=== PATIENT | male | born 1975 | race Caucasian/White ===

== ENCOUNTER 2024-08-21 14:49 | Inpatient (IN) | payer OTHER ==
[2024-08-21 15:25] VITALS: BMI 26.6
[2024-08-21] MEDS ORDERED: BENZONATATE 200 MG CAPSULE PO PRN (15:58)
[2024-08-21] MEDS ORDERED: guaiFENesin 600 MG TABLET.ER (FP) PO PRN (15:58)
[2024-08-21] MEDS ORDERED: NICOTINE POLACRILEX 4 MG GUM BUC PRN (15:58)
[2024-08-21] MEDS ORDERED: ACETAMINOPHEN 325 MG TABLET (FP) PO PRN (15:58)
[2024-08-21] MEDS ORDERED: ONDANSETRON *ODT* 4 MG TABLET SL PRN (15:58)
[2024-08-21] MEDS ORDERED: NALOXONE (NARCAN) HCL 4 MG/0.1 ML SPRAY NS PRN (15:58)
[2024-08-21] MEDS ORDERED: IBUPROFEN 400 MG TABLET (FP) PO PRN (15:58)
[2024-08-21] MEDS ORDERED: BENZOCAINE/MENTHOL (CHLORASEPTIC ) LOZENGE MM PRN (15:58)
[2024-08-21] MEDS ORDERED: MAGNESIUM HYDROX 2400MG/30ML ORAL SUSPENSION 30 ML CUP PO PRN (15:58)
[2024-08-21] MEDS ORDERED: POLYETHYLENE GLYCOL (HEALTHYLAX) 3350 17 GM PACKET PO PRN (15:58)
[2024-08-21] MEDS ORDERED: MAG HYDROX/AL HYDROX/SIMETH 30 ML UNIT-DOSE CUP PO PRN (15:58)
[2024-08-21] MEDS ORDERED: LOPERAMIDE HCL 2 MG CAPSULE PO PRN (15:58)
[2024-08-21] MEDS ORDERED: BISMUTH SUBSALICYLATE 524 MG/30 ML PO PRN (15:58)
[2024-08-21] MEDS ORDERED: DICYCLOMINE HCL 10 MG CAPSULE PO PRN (15:58)
[2024-08-21] MEDS ORDERED: hydrOXYzine PAMOATE 25 MG CAPSULE (FP) PO PRN (15:58)
[2024-08-21] MEDS: PRENATAL VITAMINS W/ FOLIC ACID TABLET (FP) PO SCH (18:26)
[2024-08-21] MEDS: IBUPROFEN 600 MG TABLET (FP) PO PRN (19:24)
[2024-08-21] MEDS: MELATONIN 5 MG TABLETS PO SCH (22:23)
[2024-08-21] MEDS: METHOCARBAMOL 500 MG TABLET PO PRN (22:23)
[2024-08-21] MEDS: THIAMINE 100 MG TABLET PO SCH (22:23)
[2024-08-22 09:47] LABS: CHLORIDE 107 mmol/L (98-107); POTASSIUM 3.9 mmol/L (3.5-5.1); SODIUM 141 mmol/L (136-145)
[2024-08-22 10:05] LABS: SGPT/ALT 21 U/L (13-61)
[2024-08-22 10:06] LABS: BILIRUBIN,TOTAL 0.4 mg/dL (0.2-1)
[2024-08-22 10:07] LABS: ALBUMIN 3.3 g/dl (3.4-5.0); ANION GAP 7 mmol/L (4-13); BLOOD UREA NITROGEN 18.3 mg/dL (7-18); CO2 27 mmol/L (21-32); TOT PROT 5.9 g/dl (6.4-8.2)
[2024-08-22 10:08] LABS: ALK PHOS 70 U/L (45-117)
[2024-08-22 10:10] LABS: CREATININE 0.8 mg/dL (0.55-1.3); GLUCOSE,RANDOM 101 mg/dL (74-106); SGOT/AST 18 U/L (15-37)
[2024-08-22 10:17] LABS: MCH 30.6 pg (25.7-33.7); MCHC 34.1 g/dl (32.0-35.9); MEAN CELL VOLUME 89.9 fl (80-96); MEAN PLT VOLUME 7.8 fl (7.5-11.1); PLATELET COUNT 191 10^3/uL (134-434); RBC 4.56 M/mm3 (4.00-5.60); RDW 13.3 % (11.9-15.9); WHITE BLOOD COUNT 6.1 K/mm3 (4.0-10.0)
[2024-08-22] MEDS: LEVOTHYROXINE SODIUM 137 MCG PO SCH (11:42)
[2024-08-22] MEDS: SENNOSIDES/DOCUSATE COMBO (SENNA PLUS) TABLET (UD) PO SCH (11:43)
[2024-08-22] MEDS: LEVOTHYROXINE NA 125 MCG TABLET (FP) PO SCH (13:34)
[2024-08-22] MEDS: QUEtiapine FUMARATE 100 MG TABLET (FP) PO SCH (21:45)
[2024-08-22] MEDS: ATORVASTATIN CA 80 MG TABLET (FP) PO SCH (21:45)
[2024-08-23 05:36] VITALS: RESP 16
[2024-08-23] MEDS ORDERED: NALOXONE (NYS OPIOID OVERDOSE PROGRAM) 4 MG/0.1 ML SPRAY NS PRN (09:30)
[2024-08-23] MEDS: FLUoxetine HCL 10 MG TABLET PO SCH (09:53)
[2024-08-23 11:06] VITALS: BP 118/77; PULSE 60; TEMP 97.8
== END 2024-08-23 12:00 | disposition other institution (70) | DRG 774 ==
LOC: YASAS 14:49 → Y3N 16:51
PROVIDERS: ADMIT Allergy & Immunology; ATTEND Surgery
PROC: HZ2ZZZZ Detoxification Services for Substance Abuse Treatment (ICD-10-PCS; principal; 2024-08-21)
DX: F10.20 Alcohol dependence, uncomplicated (principal); F14.20 Cocaine dependence, uncomplicated; F17.210 Nicotine dependence, cigarettes, uncomplicated; F19.282 Other psychoactive substance dependence with psychoactive substance-induced sleep disorder; F19.280 Other psychoactive substance dependence with psychoactive substance-induced anxiety disorder; F19.24 Other psychoactive substance dependence with psychoactive substance-induced mood disorder; E78.2 Mixed hyperlipidemia; E03.9 Hypothyroidism, unspecified; I10 Essential (primary) hypertension; R73.03 Prediabetes
CPT/HCPCS: 36415; 80053; 80305; 80307; 82140; 84443; 85027; 86480; 86780; 87811; 93005; 93010

== ENCOUNTER 2024-08-23 10:32 | Inpatient (IN) | payer OTHER ==
[2024-08-23] MEDS ORDERED: MAG HYDROX/AL HYDROX/SIMETH 30 ML UNIT-DOSE CUP PO PRN (15:37)
[2024-08-23] MEDS ORDERED: MAGNESIUM HYDROX 2400MG/30ML ORAL SUSPENSION 30 ML CUP PO PRN (15:37)
[2024-08-23] MEDS ORDERED: BENZONATATE 200 MG CAPSULE PO PRN (15:37)
[2024-08-23] MEDS ORDERED: NALOXONE (NARCAN) HCL 4 MG/0.1 ML SPRAY NS PRN (15:37)
[2024-08-23] MEDS ORDERED: NALOXONE (NYS OPIOID OVERDOSE PROGRAM) 4 MG/0.1 ML SPRAY NS PRN (15:37)
[2024-08-23] MEDS ORDERED: guaiFENesin 600 MG TABLET.ER (FP) PO PRN (15:37)
[2024-08-23] MEDS ORDERED: hydrOXYzine PAMOATE 25 MG CAPSULE (FP) PO PRN (15:37)
[2024-08-23] MEDS ORDERED: POLYETHYLENE GLYCOL (HEALTHYLAX) 3350 17 GM PACKET PO PRN (15:37)
[2024-08-23] MEDS ORDERED: BENZOCAINE/MENTHOL (CHLORASEPTIC ) LOZENGE MM PRN (15:37)
[2024-08-23] MEDS ORDERED: NICOTINE POLACRILEX 4 MG GUM BUC PRN (15:37)
[2024-08-23] MEDS ORDERED: IBUPROFEN 600 MG TABLET (FP) PO PRN (15:37)
[2024-08-23] MEDS ORDERED: ACETAMINOPHEN 325 MG TABLET (FP) PO PRN (15:37)
[2024-08-23] MEDS ORDERED: LOPERAMIDE HCL 2 MG CAPSULE PO PRN (15:37)
[2024-08-23] MEDS ORDERED: ATORVASTATIN CA 40 MG TABLET (FP) ONE (20:25)
[2024-08-23] MEDS: THIAMINE 100 MG TABLET PO SCH (21:31)
[2024-08-23] MEDS: ATORVASTATIN CA 80 MG TABLET (FP) PO SCH (21:31)
[2024-08-23] MEDS: PRAZOSIN HCL 1 MG CAPSULE PO SCH (21:31)
[2024-08-23] MEDS: QUEtiapine FUMARATE 200 MG TABLET PO SCH (21:31)
[2024-08-23] MEDS: MELATONIN 5 MG TABLETS PO SCH (21:31)
[2024-08-24] MEDS: PRENATAL VITAMINS W/ FOLIC ACID TABLET (FP) PO SCH (06:37)
[2024-08-24] MEDS: LEVOTHYROXINE NA 150 MCG TABLET PO SCH (06:40)
[2024-08-24] MEDS ORDERED: LEVOTHYROXINE 100 MCG, LEVOTHYROXINE 50 MCG PO SCH (09:02)
[2024-08-24] MEDS: FLUoxetine HCL 20 MG CAPSULE PO SCH (10:44)
[2024-08-24] MEDS: LEVOTHYROXINE 100 MCG, LEVOTHYROXINE 50 MCG PO SCH ×2 (10:44→10:55)
[2024-08-24] MEDS: SENNOSIDES/DOCUSATE COMBO (SENNA PLUS) TABLET (UD) PO SCH (10:45)
[2024-08-24 17:12] LABS: PH,URINE 6.5 (5.0-8.0); URINE APPEARANCE CLEAR; URINE BILIRUBIN NEGATIVE (NEGATIVE); URINE COLOR YELLOW; URINE GLUCOSE (UA) NEGATIVE (NEGATIVE); URINE KETONE NEGATIVE (NEGATIVE); URINE LEUK ESTERASE NEGATIVE (NEGATIVE); URINE NITRITE NEGATIVE (NEGATIVE); URINE PROTEIN NEGATIVE (NEGATIVE); URINE UROBILINOGEN 0.2 mg/dL (0.2-1.0)
[2024-08-24] MEDS ORDERED: ATORVASTATIN CA 40 MG TABLET (FP) ONE (20:32)
[2024-08-25] MEDS ORDERED: ATORVASTATIN CA 40 MG TABLET (FP) ONE (21:08)
[2024-08-26] MEDS: IBUPROFEN 400 MG TABLET (FP) PO PRN (18:09)
[2024-08-26] MEDS ORDERED: ATORVASTATIN CA 40 MG TABLET (FP) ONE (21:08)
[2024-08-26] MEDS: PRAZOSIN HCL 1 MG CAPSULE PO SCH (21:16)
[2024-08-27 06:25] VITALS: BP 117/63; PULSE 74; RESP 18; TEMP 97.5
[2024-08-27] MEDS: NALOXONE (NYS OPIOID OVERDOSE PROGRAM) 4 MG/0.1 ML SPRAY NS SCH (09:37)
== END 2024-08-27 09:37 | disposition home or self-care (01) | DRG 772 ==
LOC: YASAS 10:32 → Y3W 10:34
PROVIDERS: ADMIT Neuromusculoskeletal Medicine & OMM; ATTEND Psychiatry & Neurology Pain Medicine
PROC: HZ42ZZZ Group Counseling for Substance Abuse Treatment, Cognitive-Behavioral (ICD-10-PCS; principal; 2024-08-23)
DX: F10.20 Alcohol dependence, uncomplicated (principal); F14.20 Cocaine dependence, uncomplicated; F17.210 Nicotine dependence, cigarettes, uncomplicated; F19.282 Other psychoactive substance dependence with psychoactive substance-induced sleep disorder; F19.280 Other psychoactive substance dependence with psychoactive substance-induced anxiety disorder; F19.24 Other psychoactive substance dependence with psychoactive substance-induced mood disorder; F41.9 Anxiety disorder, unspecified; F32.A Depression, unspecified; G47.00 Insomnia, unspecified; E78.2 Mixed hyperlipidemia; I10 Essential (primary) hypertension; K21.9 Gastro-esophageal reflux disease without esophagitis; E03.9 Hypothyroidism, unspecified; R73.03 Prediabetes
CPT/HCPCS: 81003